=== PATIENT | male | born 1960 | race Caucasian/White ===

== ENCOUNTER 2018-11-26 18:33 | Emergency (ER) | payer MEDICARE, SELFPAY ==
[2018-11-26 18:34] VITALS: BP 168/95; PULSE 71; RESP 22; TEMP 36.3; O2SAT 94; BMI 60.2
--- NOTE | 2018-11-26 18:36 | RAD_ITS ---
STUDY: X-RAY - LEFT KNEE REASON FOR EXAM: Male, 58 years old. Pain status post fall TECHNIQUE: 4 view(s) of the knee. COMPARISON: None. FINDINGS: Normal visualized distal femur. Normal visualized proximal tibia and fibula. Normal proximal tibiofibular articulation. There is no demonstrated fracture. Left knee replacement . The alignment is near-anatomic. The distal aspect of the tibial component is not seen. The soft tissue structures are unremarkable. RAD/Knee 4 or More Views IMPRESSION: Left knee replacement. No fracture seen. Electronically Signed: Adiel Chambers MD at 19:59 EST , Service support ,
[2018-11-26] MEDS: Ondansetron 4 MG/2 ML Vial IM (21:10)
[2018-11-26] MEDS: morphine 8 MG/ML Syringe IM (21:10)
--- NOTE | 2018-11-26 21:13 | ED.VISSUMM ---
- ER Visit Summary Date of Service: 11/26/18 Chief Complaint: Left knee pain History of Present Illness: The patient is a 58 M presenting with left knee pain. Patient states that he slipped and fell landing directly on his left knee. This occurred a few hours prior to arrival. He complains of persistent pain in the left knee. Denies other injuries. He did not hit his head or lose consciousness. Denies other complaints. Physical Examination: Vitals are stable. Patient is afebrile. Alert no acute distress. HEENT exam is unremarkable. Neck is nontender Lungs are clear and equal bilaterally. Heart is regular rate and rhythm. Extremities anterior left knee tenderness with painful active full range of motion. Neurovascularly intact distally Skin is warm and dry. No focal neurologic deficit. Remainder of exam is unremarkable. Emergency Department Course and Treatment: Left knee x-ray shows no fracture. Patient was given morphine, Zofran IM. He states he has tramadol waiting for him at the pharmacy. He will pick this up. He is advised to follow-up with his orthopedic surgeon. He is advised to return to the ED for worsening complaints. Disposition: Discharge home Impression: Left knee contusion This note was generated with [employer] dictation software. It may contain incorrect words, spelling, and punctuation that were not noted in review of the chart prior to signing ED Disposition - Plan for ED Patient: Instructions: ED Sprain Knee
[2018-11-26 21:57] VITALS: BP 158/78; PULSE 75; RESP 16; O2SAT 98
== END 2018-11-26 21:59 | disposition home or self-care (01) ==
LOC: ED 21:27
PROVIDERS: Emergency Provider Emergency Medicine
DX: S80.02XA Contusion of left knee, initial encounter (principal); W01.10XA Fall on same level from slipping, tripping and stumbling with subsequent striking against unspecified object, initial encounter; Y93.9 Activity, unspecified; Y92.9 Unspecified place or not applicable; Y99.9 Unspecified external cause status; I25.10 Atherosclerotic heart disease of native coronary artery without angina pectoris; E11.9 Type 2 diabetes mellitus without complications; I10 Essential (primary) hypertension; Z72.0 Tobacco use; Z79.82 Long term (current) use of aspirin; Z79.4 Long term (current) use of insulin; Z79.899 Other long term (current) drug therapy
CPT/HCPCS: 73564; 96372; 99282; J2405

== ENCOUNTER 2018-12-03 16:04 | Emergency (ER) | payer MEDICARE, SELFPAY ==
[2018-12-03 16:05] VITALS: BP 180/117; PULSE 96; RESP 20; TEMP 36.3; O2SAT 93; BMI 61.7
--- NOTE | 2018-12-03 18:10 | ED.VISSUMM ---
- ER Visit Summary Date of Service: 12/03/18 Chief Complaint: [] Left knee injury chronic pain History of Present Illness: The patient is a 58 M [] he of chronic left knee pain related to prior knee replacement surgery he is scheduled to see orthopedic surgeons at [facility] to have his knee replaced, had a jolting type injury where he twisted his knee and has pain presents for evaluation his was here with similar related issues he indicates that basically when his pain gets this bad he receives a shot of morphine or Dilaudid he has no pain meds to use at home he had no direct trauma does not wish to have an x-ray has no other complaints Physical Examination: [] Vital signs are within normal range see those reports General, no distress resting comfortably but this is a very large gentleman bMI 63 HEENT is generally unremarkable The neck is supple no adenopathy Cardiovascular, regular rate and rhythm Lungs, clear bilateral Abdomen, soft nontender Extremities, full range of motion of the left knee to flexion extension he has a vague diffuse discomfort tib-fib and ankle and foot are unremarkable indicates his pain is chronic but exacerbated from the above mechanism Neurologic, awake alert answering questions appropriately moving all 4 extremities Test Results: [] Emergency Department Course and Treatment: [] I had a long conversation with him and explained to him the emergency department could not assume his pain management indicates he is basically stuck as he has no pain meds to use at home, at this time is treated with 8 mg morphine IM and he will follow-up with his outpatient providers he will receive no further pain management from the emergency department and again he does not wish to have any other studies done or imaging Treatment Plan: [] Disposition: [] Stable home Impression: [] Acute recurrent left knee pain This note was generated with [employer] dictation software. It may contain incorrect words, spelling, and punctuation that were not noted in review of the chart prior to signing ED Disposition - Plan for ED Patient: Referrals: [facility] Doctor,Out of [Primary Care Provider] -
--- NOTE | 2018-12-03 18:12 | ED.DEP ---
ED Disposition - Plan for ED Patient: Instructions: ED Mechanical Fall Referrals: [facility],Out of [Primary Care Provider] -
[2018-12-03] MEDS: morphine 8 MG/ML Syringe SC (18:48)
[2018-12-03] MEDS: Ondansetron ODT 4 MG Tablet PO (18:48)
[2018-12-03 19:42] VITALS: BP 175/106; PULSE 100; RESP 20; O2SAT 91
== END 2018-12-03 19:43 | disposition home or self-care (01) ==
LOC: ED 18:15
PROVIDERS: Emergency Provider Emergency Medicine
DX: M25.562 Pain in left knee (principal); G89.29 Other chronic pain; Z96.652 Presence of left artificial knee joint
CPT/HCPCS: 96372; 99282

== ENCOUNTER 2018-12-19 16:47 | Emergency (ER) | payer MEDICARE, SELFPAY ==
[2018-12-19 16:47] VITALS: BP 213/103; PULSE 101; RESP 22; TEMP 36.4; O2SAT 94; BMI 61.7
--- NOTE | 2018-12-19 16:59 | ED.DCSUM_ITS ---
- ER Visit Summary Date of Service: 12/19/18 Chief Complaint: Left knee pain History of Present Illness: The patient is a 58 M presenting with left knee pain states he fell directly onto his knees. He did not hit his head or lose consciousness. States occasionally his knees give out and cause him to fall. He has history of knee replacement. He did not take medication prior to arrival. Denies other injuries. Physical Examination: Vitals are stable. Patient is afebrile. Alert no acute distress. HEENT exam is unremarkable. Lungs are clear and equal bilaterally. Heart is regular rate and rhythm. Extremities anterior left knee tenderness with active full range of motion. No erythema or warmth. Skin is warm and dry. No focal neurologic deficit. Remainder of exam is unremarkable. Emergency Department Course and Treatment: Patient was given morphine, Zofran IM. Left knee x-ray was obtained and shows stable exam. No fracture or malalignment. He is advised to follow-up with his primary care physician. Advised return to ED if worsening complaints. Disposition: Discharge home Impression: Status post fall, left knee contusion This note was generated with [employer] dictation software. It may contain incorrect words, spelling, and punctuation that were not noted in review of the chart prior to signing ED Disposition - Plan for ED Patient: Referrals: Daryl Musa,Out of [Primary Care Provider] -
--- NOTE | 2018-12-19 17:08 | RAD_ITS ---
STUDY: X-RAY - LEFT KNEE REASON FOR EXAM: Male, 58 years old. Left knee pain for one year, fall today TECHNIQUE: 4 view(s) of the knee. COMPARISON: None. FINDINGS: Normal visualized distal femur. Normal visualized proximal tibia and fibula. Normal proximal tibiofibular articulation. Knee replacement is in stable, radiographic alignment. The soft tissue structures are unremarkable. RAD/Knee 4 or More Views IMPRESSION: 1. Stable exam. No fracture or malalignment. Electronically Signed: Antolin Cruz MD at 17:27 EST , Service support ,
[2018-12-19] MEDS: Ondansetron 4 MG/2 ML Vial IM (17:17)
[2018-12-19] MEDS: morphine 10 MG/ML Syringe IM (17:17)
--- NOTE | 2018-12-19 17:43 | ED.DEP ---
ED Disposition - Plan for ED Patient: Instructions: ED Contusion Lower Ext Referrals: [facility],Out of [Primary Care Provider] -
--- NOTE | 2018-12-20 15:44 | CM.ED ---
SOCIAL WORK NOTE RECEIVED ORDER FOR HOME HEALTH FOR PT. CALL TO PT TO FOLLOW UP FROM ED VISIT ON 12/19/18. NO ANSWER, LEFT MESSAGE WITH THIS WORKER'S CALL BACK INFORMATION. MEGHAN RUIZ, [employer]ODUCTION SUPERVISOR, MEAT SUPERVISOR.
== END 2018-12-19 18:06 | disposition home or self-care (01) ==
LOC: ED 17:16
PROVIDERS: Emergency Provider Emergency Medicine
DX: S80.02XA Contusion of left knee, initial encounter (principal); W18.30XA Fall on same level, unspecified, initial encounter; Y93.9 Activity, unspecified; Y92.9 Unspecified place or not applicable; Y99.9 Unspecified external cause status; Z79.82 Long term (current) use of aspirin; Z79.4 Long term (current) use of insulin; Z79.899 Other long term (current) drug therapy; Z96.653 Presence of artificial knee joint, bilateral
CPT/HCPCS: 73564; 96372; 99282; J2405

== ENCOUNTER 2018-12-23 17:20 | Emergency (ER) | payer MEDICARE, SELFPAY ==
[2018-12-23 17:21] VITALS: BP 164/84; PULSE 88; RESP 18; TEMP 36.6; O2SAT 99; BMI 60.2
--- NOTE | 2018-12-23 17:31 | ED.RN ---
pt refuses xrays. irate in triage for not being seen before other pts. explained triage process. pt still upset.
--- NOTE | 2018-12-23 17:50 | RAD_ITS ---
STUDY: X-RAY CHEST REASON FOR EXAM: Male, 58 years old. Cough TECHNIQUE: Frontal and lateral views COMPARISON: None. FINDINGS: The lungs are clear and expanded. There is no demonstrated pleural abnormality. Normal size heart. Normal mediastinum and jabier. Normal visualized pulmonary arteries. Normal visualized aortic arch and descending thoracic aorta. Normal visualized thoracic spine. Normal visualized ribs, clavicles, and shoulders. Right shoulder prosthesis. There is no demonstrated abnormality of the visualized soft tissue structures of the upper abdomen. RAD/Chest PA and Lateral IMPRESSION: Normal x-ray examination of the chest. Electronically Signed: Red Lan DO at 18:09 EST Tel [phone], Service support ,
--- NOTE | 2018-12-23 17:59 | ED.RN ---
after speaking with pt, he agreed to xrays for expedition of treatment. upon arriving to xray, pt refused knee xrays without strong pain meds. was rude and yelling at xray staff.
[2018-12-23 21:52] VITALS: PULSE 96; RESP 22; O2SAT 90
--- NOTE | 2018-12-23 21:52 | EKG12_ITS ---
Test Reason : CHEST PAIN Blood Pressure : / mmHG Vent. Rate : 096 BPM Atrial Rate : 096 BPM P-R Int : 152 ms QRS Dur : 090 ms QT Int : 356 ms P-R-T Axes : 057 034 062 degrees QTc Int : 449 ms Normal sinus rhythm Normal ECG Confirmed by CARMEN MONCADA, GENEVIEVE ([id number]), communications editor BRIGHT ALATORRE ([id number]) on 12/29/2018 9:13:30 AM Referred By: DEWAYNE Confirmed By:GENEVIEVE MORALES MD
--- NOTE | 2018-12-23 22:15 | ED.DEP ---
ED Disposition - Plan for ED Patient: Instructions: ED Sprain Knee Referrals: [facility],Out of [Primary Care Provider] -
--- NOTE | 2018-12-23 22:15 | ED.VISSUMM ---
- ER Visit Summary Date of Service: 12/23/18 Chief Complaint: Left knee pain History of Present Illness: The patient is a 58 M who presents with left knee pain. Patient says he has ongoing left knee pain for years. Sometimes his knee gives out. He said he fell today and injured his knee. He said he twisted it when he fell. He denies any other injuries or complaints. He said he is waiting for an operative repair of his left knee, but he needs to lose weight before he can go to surgery. He took some ibuprofen earlier today, prior to the fall. Physical Examination: Afebrile and vital signs unremarkable. Alert and oriented. No acute distress. Left knee shows normal inspection. Good range of motion. Skin appears normal. Test Results: Chest x-ray was ordered by nursing and it was normal. Nursing also ordered an EKG which showed sinus rhythm at a rate of 96 with no abnormal findings. Emergency Department Course and Treatment: Patient presents with left knee pain. He declined an x-ray of his knee in triage. He told the triage nurse that he was having chest pain and a cough, and so an x-ray and EKG were ordered. These tests were negative. According to the senior laboratory technician, the patient told him that he thought that reporting some chest pain would get him evaluated quicker. I saw the patient and he continued to refuse x-rays of his knee. I was concerned that if he fell and injured his knee, we should check for fractures. He said that he is already had so many x-rays, and that he would just like something for pain. I advised him that we could treat him with nonnarcotic medications as well as ice packs and check an x-ray. He told me that I could check an x-ray if I want but that he just wants something for pain. He said this pain has been going on for years. Patient had multiple concerning red flags. This was his fourth visit in about 1 month for left leg pain. I explained that this is a chronic issue and he really needs to follow-up with a primary care doctor or a pain management doctor. The patient said he did not have a doctor. I explained that I could refer him to a primary care doctor or a pain management doctor. He then said he did have a doctor and his doctor told him to come to the ER for pain meds. Patient showed me some kind of cards with his name on the that were in relation to working with addiction medicine. The patient was seen on a previous visit, and his encouraged him to ask for tramadol. His was also here asking for tramadol in the past. I explained to the patient that the patient's pain is a chronic issue, and that he should follow-up with primary care doctor or pain management doctor, and that we will not be prescribing opioids for chronic pain. I advised him that we do not want to cause any harm to him or create any kind of dependency. I explained that these medications are very dangerous. I advised the patient that we could give him any nonnarcotic medications and try other methods such as ice packs, etc. When he asked me what kind of medication, I suggested Tylenol, Motrin, naproxen. He said what kind of fucking doctor are you? He was mad that I would suggest he takes Tylenol, and says he is allergic to that. He continued to swear at me and threaten me, and I at that point said he was discharged. I asked security to escort him out. Treatment Plan: As above Disposition: Discharge Impression: 1. Left knee pain This note was generated with [employer], dictation software. It may contain incorrect words, spelling, and punctuation that were not noted in review of the chart prior to signing ED Disposition - Plan for ED Patient: Disposition: Home or Assisted Living Instructions: ED Sprain Knee Referrals: [facility] Doctor,Out of [Primary Care Provider] -
--- NOTE | 2018-12-23 22:21 | ED.RN ---
DR ESPARZA IN TO SEE PATIENT. PATIENT STARTED YELLING PROFANITY'S AT DR. ESPARZA WHEN HE TOLD PATIENT TREATMENT PLAN.
[2018-12-23 22:23] VITALS: PULSE 92; RESP 20; O2SAT 91
== END 2018-12-23 22:24 | disposition home or self-care (01) ==
PROVIDERS: Emergency Provider Emergency Medicine
DX: M25.562 Pain in left knee (principal); E11.9 Type 2 diabetes mellitus without complications; I50.9 Heart failure, unspecified; R07.9 Chest pain, unspecified; R05 Cough; Z79.82 Long term (current) use of aspirin; Z79.4 Long term (current) use of insulin; Z79.899 Other long term (current) drug therapy
CPT/HCPCS: 71046; 93005; 99282

== ENCOUNTER 2019-01-15 16:41 | Emergency (ER) | payer MEDICARE, SELFPAY ==
[2019-01-15 16:42] VITALS: BP 141/89; PULSE 97; RESP 17; TEMP 36.9; O2SAT 93; BMI 60.2
--- NOTE | 2019-01-15 17:29 | ED.DCSUM_ITS ---
- ER Visit Summary Date of Service: 01/15/19 Chief Complaint: Fall complaint right knee pain History of Present Illness: The patient is a 58 M history of insulin-dependent diabetes, CAD, RI, hypertension. Patient had a left knee replacement. He says from time to time he has weakness in his left leg gives out any falls. That happened today he fell hitting his right anterior knee on a tile floor and since that time is been complaining of pain. This happened 1-2 hours ago. He denies any other injuries. He is not on any blood thinners other than aspirin. He did not hit his head. He denies other complaints. Physical Examination: Vital signs are stable and afebrile. No acute distress. Sitting in the hallway chair. HEENT exam unremarkable atraumatic. Lungs clear to auscultation bilaterally. Heart regular rhythm no murmur. Abdomen is morbidly obese but soft. Nontender normal bowel sounds no peritoneal signs. Extremities moving all 4. Neurovascular intact. His right anterior knee has mild tenderness to palpation. No gross bony deformity. He is able to flex and extend the right knee. Ligaments appear to be intact. No effusion. Distally his right ankle and foot are nontender. With normal dorsi and plantar flexion. Neurologically is awake and alert with no focal motor deficits. Test Results: Right knee x-ray shows 3 views shows no acute fracture. Chronic degenerative arthritic changes. I will go over the films with the patient. Emergency Department Course and Treatment: [address] x1 for pain. Patient throughout the [address] because he was concerned that he may have a reaction to it due to a possible Tylenol allergy. And Requesting multiple times narcotic pain medications. I do have concerns the number times the patient is asking eluded to pain meds and do not feel that this injury warrants narcotic pain medication. Patient was upset he was not getting any narcotic pain medication. I offered him anti-inflammatories and explained to him it would be appropriate to give narcotics for this type of injury. He wanted to file a complaint. Of note his is also here with a similar complaint and is also asking for pain medications. Treatment Plan: Ice and elevate right knee. Disposition: Discharge Impression: Fall Right knee contusion History of insulin-dependent diabetes Narcotic seeking behavior This note was generated with [facility] dictation software. It may contain incorrect words, spelling, and punctuation that were not noted in review of the chart prior to signing ED Disposition - Plan for ED Patient: Disposition: Home or Assisted Living Instructions: ED Contusion Lower Ext Referrals: [facility],Out of [Primary Care Provider] - 1 Week if not improving Additional Instructions: Ice to your knee. Motrin for pain. Follow-up with your doctor if not improving. Your x-rays show arthritis but no broken or dislocated bones.
[2019-01-15] MEDS: HYDROcodone Bitartrate/Apap 5/325 Tablet PO (17:35)
--- NOTE | 2019-01-15 17:41 | RAD_ITS ---
STUDY: X-RAY - RIGHT KNEE REASON FOR EXAM: Male, 58 years old. Fall. Pain. TECHNIQUE: view(s) of the knee. COMPARISON: None. FINDINGS: Normal visualized distal femur. Normal visualized proximal tibia and fibula. Normal proximal tibiofibular articulation. There is no demonstrated fracture. There is mild degenerative arthrosis of the medial femorotibial compartment. Normal lateral femorotibial compartment. There is moderate degenerative arthrosis of the patellofemoral articulation. There is no demonstrated joint effusion. The soft tissue structures are unremarkable. RAD/Knee 4 or More Views IMPRESSION: No acute fracture or dislocation. [id number] changes. Electronically Signed: Elder Voss MD at 17:57 EDT , Service support ,
--- NOTE | 2019-01-15 18:04 | ED.RN ---
PT YELLING LOUDLY, DEMANDS PAIN MEDS HARRIET PRIOR TO BEING SEEN BY MD. EXPLAINED MEDS NEEDED ORDERED BY MD, OFFERED SUPPORTIVE CARE. WHEN THIS RN ARRIVED WITH PAIN MEDS, PT ASKED WHAT HE WAS RECEIVING. RN INFORMED PT OF DRUG BY GENERIC AND TRADE NAME, PT ASKED IS IT A 5 OR A 10, FURTHER STATES I NEED MORE THAN MOST PEOPLE. AFTER PAIN MED GIVEN, PT STATES I CAN'T HAVE THAT, I'M ALLERGIC TO TYLENOL. MD INFORMED OF PT'S STATEMENT. NO NEW ORDERS. PT TAKEN TO XRAY, AFTER HE RETURNS HE STATES I THREW UP THAT PILL. WHEN ASKED WHEN AND WHERE HE VOMITED, PT STATED WHEN I WENT TO THE BATHROOM. PT HAD GONE TO BATHROOM PRIOR TO RECEIVING MED. AWARE OF ALL OF ABOVE.
--- NOTE | 2019-01-15 18:30 | ED.DEP ---
ED Disposition - Plan for ED Patient: Disposition: Home or Assisted Living Instructions: ED Contusion Lower Ext Referrals: [facility],Out of [Primary Care Provider] - 1 Week if not improving Additional Instructions: Ice to your knee. Motrin for pain. Follow-up with your doctor if not improving. Your x-rays show arthritis but no broken or dislocated bones.
== END 2019-01-15 18:50 | disposition home or self-care (01) ==
PROVIDERS: Emergency Provider Emergency Medicine
DX: S80.01XA Contusion of right knee, initial encounter (principal); W18.30XA Fall on same level, unspecified, initial encounter; Y93.9 Activity, unspecified; Y92.9 Unspecified place or not applicable; Y99.9 Unspecified external cause status; E11.9 Type 2 diabetes mellitus without complications; Z76.5 Malingerer [conscious simulation]; I25.10 Atherosclerotic heart disease of native coronary artery without angina pectoris; I10 Essential (primary) hypertension; F17.210 Nicotine dependence, cigarettes, uncomplicated; I25.2 Old myocardial infarction; Z79.82 Long term (current) use of aspirin; Z79.4 Long term (current) use of insulin; Z79.899 Other long term (current) drug therapy; Z95.5 Presence of coronary angioplasty implant and graft
CPT/HCPCS: 73564; 99283

== ENCOUNTER 2019-10-27 20:32 | Emergency (ER) | payer MEDICARE, SELFPAY ==
[2019-10-27 20:33] VITALS: BP 106/47; PULSE 69; RESP 20; TEMP 37.4; O2SAT 93; BMI 57.4
--- NOTE | 2019-10-27 21:20 | ED.DCSUM_ITS ---
History of Present Illness Chief Complaint: Cellulitis Detail of Chief Complaint: Left lower extremity cellulitis Informant: Patient Onset: Days Narrative: Patient reports going to [facility] in [place] on the fifth for cellulitis to his left lower extremity. He was placed on clindamycin and doxycycline. Patient states the redness is improving. He presented to the local area to visit family today and reports a fall with increased pain. Patient then tells me that he did go back to [place] yesterday and had an ultrasound of his leg that revealed no evidence of blood clots. He is requesting a dose of IV antibiotic to knock out the infection and something for pain. - Past Medical History (1) Diabetes Status: Chronic (2) Hypertension Status: Chronic (3) High cholesterol Status: Chronic (4) History of left knee replacement Status: Chronic Past Medical History - Allergies and Home Meds Allergies/Adverse Reactions: Allergies acetaminophen Adverse Reaction (Verified 01/15/19 16:42) Swelling ketorolac [From Toradol] Adverse Reaction (Verified 10/27/19 20:32) Swelling Primary Care Physician: [facility] Doctor,Out of [NON-STAFF] - Smoking Status: Unknown if ever smoked Review of Systems General: Denies: Chills, Fever Eyes: Denies: Visual changes - bilaterally ENT: Denies: Bilateral ear pain Cardiovascular: Denies: Chest pain Respiratory: Denies: Dyspnea Gastrointestinal: Denies: Abdominal pain, Nausea, Vomiting, Diarrhea Musculoskeletal: Reports: Extremity Pain Skin: Reports: - - Left lower extremity erythema Neurological: Denies: Headache Allergy: Denies: Uticaria Physical Exam Vital Signs/Narrative: Vital Signs Temp Pulse Resp BP Pulse Ox 10/27/19 20:33 99.3 F H 69 20 H 106/47 L 93 Inital Vital Signs reviewed: Yes General: Well nourished, Well developed Head: Normocephalic ENT: Moist mucous membranes Neck: Supple Cardiovascular: Regular rate, Regular rhythm Respiratory: No distress, CTA bilaterally Abdomen: Soft, Nontender Skin: - - Erythema to the distal aspect of the left lower leg. There is an area of outline where the cellulitis had been spread and erythema is significantly smaller. Strong distal pulses are noted. No tenderness around the left ankle with 2+ edema. Neurological: Alert, Oriented x3 Psychological: Normal affect Diagnostic/Tx/Re-eval Impressions Ankle X-Ray 10/27/19 21:30 IMPRESSION: Diffuse nonspecific soft tissue swelling with no underlying acute bone or joint findings. Electronically Signed: Tabitha Dela Cruz MD at 21:48 EST , Service support , 10/27/19 21:30 Ankle min 3 Views [RAD] Stat Laboratory Results 10/27/19 10/27/19 21:50 21:50 WBC 6.5 RBC 4.39 L Hgb 11.3 L Hct 36.1 L MCV 82.2 MCH 25.7 L MCHC 31.3 L RDW Std Deviation 41.5 RDW Coeff of Tom 14.0 Plt Count 249 MPV 10.2 Immature Gran % (Auto) 0.900 Neut % (Auto) 50.3 Lymph % (Auto) 31.9 [place] % (Auto) 10.0 Eos % (Auto) 6.6 H Baso % (Auto) 0.3 Absolute Neuts (auto) 3.3 Absolute Lymphs (auto) 2.07 Nucleated RBC % 0 Sodium 137 Potassium 4.7 Chloride 102 Carbon Dioxide 28.0 Anion Gap 7 BUN 41 H Creatinine 1.88 H Estim Creat Clear Calc 44.22 Est GFR (MDRD) Af Amer 48 L Est GFR (MDRD) Non-Af 39 L BUN/Creatinine Ratio 21.8 H Glucose 327 H Calcium 9.4 - Medical Decision Making Patient was given 1 tab of oxycodone here. I was unable to find his records in [facility] but did request records from [facility]. Patient has had 4 visits to the emergency room there since the third. Patient was at [facility] and signed in at 7:07 PM. He was discharged at 7:46 PM. He signed in here at approximately 825. He had initially told me that he was in town visiting family today when he fell. Patient per the notes from [facility] has been asking for multiple doses of oxycodone or morphine. Patient has active prescription for tramadol would not be given any further prescriptions here. ED Disposition - Plan for ED Patient: Disposition: Home or Assisted Living Diagnosis: Cellulitis Instructions: Cellulitis Referrals: [facility] Doctor,Out of [NON-STAFF] -
--- NOTE | 2019-10-27 21:30 | RAD_ITS ---
STUDY: X-RAY - LEFT ANKLE REASON FOR EXAM: Male, 59 years old. CELLULITIS, PAIN TECHNIQUE: 3 view(s) of the ankle. COMPARISON: None. FINDINGS: Normal visualized distal tibia and fibula. Hypertrophic degenerative changes of the medial malleolus. Normal lateral malleolus. Normal tibiotalar articulation and ankle mortise. Normal visualized talus and calcaneus. The visualized subtalar, talonavicular, calcaneocuboid and tarsal articulations are normal. Diffuse soft tissue swelling. RAD/Ankle min 3 Views IMPRESSION: Diffuse nonspecific soft tissue swelling with no underlying acute bone or joint findings. Electronically Signed: Tabitha Dela Cruz MD at 21:48 EST , Service support ,
[2019-10-27] MEDS: oxyCODONE 5 MG Tablet PO (21:44)
--- NOTE | 2019-10-27 21:52 | ED.RN ---
WHILE THIS RN WAS PLACING IV AND DRAWING BLOOD, PT ASKED FOR PAIN MEDICATION. MEDICATION WAS GIVEN 5 MIN PRIOR BY OTHER RN. PT EDUCATED ON HOW LONG IT TAKES ORAL MEDS TO GET INTO BODY.
[2019-10-27 21:57] LABS: Absolute Lymphocyte Count 2.07 X10^3/uL (0.83-4.51); Absolute Neutrophil Count 3.3 X10^3/uL (2.0-7.7); Basophil# 0.02 X10^3/uL; Basophil% 0.3 % (0-1); Eosinophil# 0.43 X10^3/uL; Eosinophils% 6.6 % (0-5); Hematocrit 36.1 % (40-54); Hemoglobin 11.3 g/dL (13.0-16.5); Lymphocyte # 2.07 X10^3/ul (4.0); Lymphocyte % 31.9 % (19-41); Mean Corp Hgb Conc 31.3 g/dL (32-36); Mean Corpuscular Hgb 25.7 pg (27.0-32.0); Mean Corpuscular Volume 82.2 fL (80-94); Mean Platelet Vol. 10.2 fl (6.2-12.0); Monocyte# 0.65 X10^3/uL; NRBC Flagged by Analyzer 0 % (0-5); Neutrophil # 3.25 X10^3/uL (2.7-7.7); Neutrophil % 50.3 % (47-70); Platelet Count 249 K/mm3 (150-450); RBC Distribution Width SD 41.5 fl (35.1-43.9); Red Blood Count 4.39 M/mm3 (4.6-6.2); White Blood Count 6.5 K/mm3 (4.4-11.0)
[2019-10-27 22:10] LABS: Anion Gap 7 (5-15); BUN 41 mg/dL (7-18); BUN/Creat Ratio 21.8 RATIO (10-20); Calcium,Total 9.4 mg/dL (8.5-10.1); Chloride 102 mmol/L (98-107); Creatinine, Serum 1.88 mg/dL (0.70-1.30); EST Glomerular Filtration Rate 39 mL/min (>60); Est Glom Filt Rate - Afr Amer 48 mL/min (>60); Estimated Creatinine Clearance 44.22 ml/min; Glucose 327 mg/dL (74-106); Potassium 4.7 mmol/L (3.5-5.1); Sodium Level 137 mmol/L (136-145)
--- NOTE | 2019-10-27 22:39 | ED.RN ---
PT DID NOT WANT TO STAY FOR VITAL SIGNS FOR DISCHARGE. FAMILY AT BEDSIDE.
== END 2019-10-27 22:40 | disposition home or self-care (01) ==
PROVIDERS: Emergency Provider Emergency Medicine
DX: L03.116 Cellulitis of left lower limb (principal); E11.9 Type 2 diabetes mellitus without complications; I10 Essential (primary) hypertension; E78.00 Pure hypercholesterolemia, unspecified; Z79.82 Long term (current) use of aspirin; Z79.4 Long term (current) use of insulin; Z79.899 Other long term (current) drug therapy; Z96.652 Presence of left artificial knee joint
CPT/HCPCS: 73610; 80048; 85025; 99284; A4216

== ENCOUNTER 2019-11-02 18:42 | Emergency (ER) | payer MEDICARE, SELFPAY ==
[2019-11-02 18:43] VITALS: BP 162/84; PULSE 88; RESP 16; TEMP 36.1; O2SAT 97; BMI 56.9
[2019-11-02] MEDS: Naproxen 500 MG Tablet PO (19:30)
--- NOTE | 2019-11-02 19:43 | ED.RN ---
PT BECAME ANGRY WHEN THIS RN ATTEMPTED TO MEDICATE WITH NAPROSYN. PT STATES I NEED SOMETHING A LOT STRONGER, SOMETHING NARCOTIC. THIS RN EXPLAINED PAIN WOULD BE RE EVALUATED AFTER ATTEMPTING NSAID TX AND ALSO AFTER IMAGING RESULTS. PT STATED I DON'T NEED ANY X-RAYS, ADAMANTLY REFUSED IMAGING DESPITE INSISTING PAIN WAS EXTREME. STATES I KNOW NOTHING IS BROKE. AT BEDSIDE, STATES WHY WON'T YOU JUST GIVE HIM SOME NARCOTICS, THAT'S WHAT WE USUALLY GET. AGAIN ATTEMPTED TO EDUCATE ON NEED FOR IMAGING, PT REFUSES, STATES I JUST CAME HERE SO YOU COULD GIVE ME SOMETHING FOR THE PAIN. NOTIFIED OF ABOVE, NO FURTHER ORDERS. THIS RN RETURNED TO ROOM AND AGAIN ENCOURAGED IMAGING, PT HAD GOTTEN DRESSED, STATES HE IS LEAVING, WILL NOT SIGN ANY AMA PAPERS. PT AND LEFT DEPT.
--- NOTE | 2019-11-02 23:57 | ED.DCSUM_ITS ---
- ER Visit Summary Date of Service: 11/02/19 Chief Complaint: Back and knee pain History of Present Illness: The patient is a 59 M who presents with back and knee pain that began after a fall today. Patient states he missed seat and fell onto the floor. Patient complains of pain in his low back and both knees but worse on the left. Patient describes the pain is sharp and throbbing. Patient states pain is worse with movement. Patient denies any paresthesias or weakness. Patient denies any head injury or loss of consciousness. Patient denies any other injuries. Physical Examination: Vital signs are stable. Patient is afebrile. Patient is in no acute distress. Oral mucosa is pink and moist. Neck is supple. Trachea is midline. There is no JVD. Heart was regular rate and rhythm. Lungs are clear and equal bilateral. Abdomen is soft and nontender. Musculoskeletal exam reveals tenderness over the lumbar spine and paraspinal muscles. There is no bony crepitance or step-off. There is no edema or ecchymosis. Straight leg raises were negative bilaterally. There is tenderness to palpation over the knees bilaterally but worse on the left. There is no ecchymosis. Range of motion was limited in all motion of the knees secondary to pain. There is no effusion. Sensation was intact to light touch bilateral lower extremities. Strength is 5/5 bilaterally in lower extremities. Pedal pulses are equal bilaterally. Test Results: X-rays of the knees and lumbar spine were ordered. Patient refused to have these done. Emergency Department Course and Treatment: Patient was given a dose of Naprosyn here. Patient refused to have his x-rays performed. Patient was requesting narcotic pain medication. Patient was instructed that x-rays would need to be done to determine if there is a fracture which is an indication for narcotic pain medication. At this time patient appears to only have contusions which do not indicate a need for narcotic pain medication. Patient left prior to completing treatment. Disposition: Elopement Impression: 1. Fall 2. Bilateral knee contusions 3. Lumbar strain This note was generated with [employer] software. It may contain incorrect words, spelling, and punctuation that were not noted in review of the chart prior to signing ED Disposition - Plan for ED Patient: Disposition: Against Medical Advice Diagnosis: Fall, Contusion of knee, Lumbar strain Referrals: [facility] [Other]
== END 2019-11-02 19:52 | disposition left against medical advice (07) ==
LOC: ED 19:20
PROVIDERS: Emergency Provider Emergency Medicine
DX: S39.012A Strain of muscle, fascia and tendon of lower back, initial encounter (principal); S80.02XA Contusion of left knee, initial encounter; S80.01XA Contusion of right knee, initial encounter; W19.XXXA Unspecified fall, initial encounter; Y93.9 Activity, unspecified; Y92.9 Unspecified place or not applicable; Y99.9 Unspecified external cause status; E11.9 Type 2 diabetes mellitus without complications; I10 Essential (primary) hypertension; E66.9 Obesity, unspecified; Z79.82 Long term (current) use of aspirin; Z79.4 Long term (current) use of insulin; Z79.899 Other long term (current) drug therapy; Z95.5 Presence of coronary angioplasty implant and graft
CPT/HCPCS: 99283

== ENCOUNTER 2020-02-23 17:54 | Emergency (ER) | payer MEDICARE, MEDICAID, SELFPAY ==
[2020-02-23 17:55] VITALS: BP 156/117; PULSE 93; RESP 16; TEMP 36.3; O2SAT 95; BMI 57.4
--- NOTE | 2020-02-23 18:28 | ED.VISSUMM ---
- ER Visit Summary Date of Service: 02/23/20 Chief Complaint: Fall with left knee and low back pain. History of Present Illness: The patient is a 59 M has a complex past medical history of insulin-dependent diabetes, hypertension, high cholesterol, obesity, CAD with a cardiac stent on Plavix. Patient states that he had a left knee replacement. From time to time his knee gives out. He was walking at home today. Knee gave out he fell landing on both knees primarily complaining of pain on the left and his low back. Did not hit his head. No LOC. No pre-fall symptoms. He denies being ill recently. He had a similar episode a year ago. Physical Examination: Middle-aged male no acute distress vital signs stable afebrile. H EENT exam dry reactive light. No signs of trauma to his face or scalp. Nontender no hematomas. C-spine nontender. Lungs with auscultation bilaterally. Heart regular rhythm rate about 90 no murmur. Chest were nontender. Ribs nontender. Abdomen soft. Nontender. Normal bowel sounds no peritoneal signs. No bruising. Morbidly obese. Pelvic girdle intact. Patient is moving all 4 extremities both upper and lower extremities. No deformity. He has mild pain on palpation to his left knee. No swelling. No bony deformity. Normal flexion-extension of both hips, both knees and ankles and feet. Upper extremities are nontender with normal range of motion. Back he has diffuse lumbar spine tenderness. There is no ecchymosis or bruising. No deformity. Neurologically is awake alert with no focal motor deficits. Test Results: Left knee x-ray shows a prior total knee replacement but no acute injury. Hardware intact. 4 views. Read by myself. Lumbar spine x-rays 2 views read by myself shows no acute abnormality. I did go over the x-ray results with the patient. Emergency Department Course and Treatment: Patient treated with Tylenol for pain. X-rays are being obtained. He has a history of falls and requesting pain meds. With myself and the charge nurse discussed with the patient at length. He keeps requesting pain meds and is trying to bargain to get pain meds. I explained to him due to issues with prior visits and pain medications that I did not feel was appropriate to treat him with narcotic pain meds. He was offered Tylenol which she refused. He then requested Motrin. Treatment Plan: Ice to his knee and back. Tylenol for pain. Disposition: Discharge Impression: Acute fall Left knee contusion Low back musculoskeletal pain. Narcotic seeking behavior History of diabetes, CAD with stents, hypertension This note was generated with [employer] dictation software. It may contain incorrect words, spelling, and punctuation that were not noted in review of the chart prior to signing ED Disposition - Plan for ED Patient: Referrals: NOT,DEFINED [Primary Care Provider] -
--- NOTE | 2020-02-23 18:35 | RAD_ITS ---
STUDY: X-RAY - LUMBAR SPINE REASON FOR EXAM: Male, 59 years old. FALL AND BACK PAIN TECHNIQUE: 3 view(s) of the lumbar spine were obtained. COMPARISON: None FINDINGS: Normal lumbar lordosis. There is mild dextroscoliosis or splinting secondary to muscle spasm. Grade 1 retrolisthesis at L5-S1 where there appears to be spinal stenosis exaggerated by facet arthropathy and foreshortened pedicles. This may be better assessed with CT or MRI if indicated No evidence for acute fracture or subluxation. Disc space heights are well-maintained although there is multilevel endplate spurring. The soft tissue structures are unremarkable. RAD/Lumbar Spine 2 or 3 Views IMPRESSION: Mild scoliosis and degenerative changes most severe at L5-S1. No evidence for acute fracture or subluxation Electronically Signed: Jose Luis Delgado MD at 19:21 EDT , Service support ,
--- NOTE | 2020-02-23 18:35 | RAD_ITS ---
STUDY: X-RAY - LEFT KNEE REASON FOR EXAM: Male, 59 years old. FALL AND PAIN TECHNIQUE: 4 view(s) of the knee. COMPARISON: None. FINDINGS: Prosthesis is noted in anatomic alignment and position. No evidence for acute fracture or dislocation.. No definitive evidence for loosening of the prosthesis. RAD/Knee 4 or More Views IMPRESSION: Stable appearance to knee prosthesis without evidence for acute fracture or dislocation. Electronically Signed: Jose Luis Delgado MD at 19:23 EDT , Service support ,
--- NOTE | 2020-02-23 19:17 | ED.DEP ---
ED Disposition - Plan for ED Patient: Disposition: Home or Assisted Living Instructions: ED EXTREMITY CONTUSION Lower, ED LUMBAR SPRAIN/STRAIN Referrals: NOT,DEFINED [Primary Care Provider] - 1 Week if not improving Additional Instructions: Follow Up with your doctor if not improving. Ice to all sore areas including your left knee and back.
[2020-02-23 19:25] VITALS: BP 139/84; PULSE 71; RESP 18; O2SAT 95
[2020-02-23] MEDS: Ibuprofen 200 MG Tablet 800 MG PO (19:27)
== END 2020-02-23 19:28 | disposition home or self-care (01) ==
LOC: ED 19:27
PROVIDERS: Emergency Provider Emergency Medicine
DX: S80.02XA Contusion of left knee, initial encounter (principal); M54.5 Low back pain; Z76.5 Malingerer [conscious simulation]; W19.XXXA Unspecified fall, initial encounter; Y93.01 Activity, walking, marching and hiking; Y92.009 Unspecified place in unspecified non-institutional (private) residence as the place of occurrence of the external cause; Y99.9 Unspecified external cause status; I25.10 Atherosclerotic heart disease of native coronary artery without angina pectoris; E11.9 Type 2 diabetes mellitus without complications; I10 Essential (primary) hypertension; E78.00 Pure hypercholesterolemia, unspecified; E66.01 Morbid (severe) obesity due to excess calories; Z79.4 Long term (current) use of insulin; Z79.82 Long term (current) use of aspirin; Z79.02 Long term (current) use of antithrombotics/antiplatelets; Z79.899 Other long term (current) drug therapy; Z96.652 Presence of left artificial knee joint; Z95.5 Presence of coronary angioplasty implant and graft
CPT/HCPCS: 72100; 73564; 99283

== ENCOUNTER 2020-04-26 19:12 | Emergency (ER) | payer MEDICARE, MEDICAID, SELFPAY ==
[2020-04-26 19:14] VITALS: BP 140/100; PULSE 90; RESP 18; TEMP 36.7; O2SAT 94; BMI 58.8
--- NOTE | 2020-04-26 19:33 | ED.VIS.GEN ---
History of Present Illness Chief Complaint: Lower Extremity Injury Onset: Today Narrative: 59-year-old male presents with left knee pain after falling today. States that he has frequent falls. Describes his pain in his left knee which is aching and worse with movement. States he has had these issues for many years. Is due to have surgery but has to lose 100 pounds first. Denies any numbness or tingling. Denies any loss of consciousness or head injury. Past Medical History - Allergies and Home Meds Allergies/Adverse Reactions: Allergies acetaminophen Adverse Reaction (Verified 04/26/20 19:16) Swelling ketorolac [From Toradol] Adverse Reaction (Verified 04/26/20 19:16) Swelling Primary Care Physician: Care Physician,No Primary [Primary Care Provider] - Past Medical History: - - DM, HTN Surgical History: - - left knee Smoking Status: Former smoker Review of Systems General: Denies: Chills, Fever, Sweats Eyes: Denies: Visual changes - bilaterally, Diplopia ENT: Denies: Rhinorrhea, Sore throat Cardiovascular: Denies: Chest pain, Palpitations Respiratory: Denies: Dyspnea, Cough, Dyspnea on exertion Gastrointestinal: Denies: Abdominal pain, Nausea, Vomiting, Diarrhea, Melena, Hematochezia Genitourinary: Denies: Dysuria, Hematuria, Frequency Musculoskeletal: Reports: Arthralgias. Denies: Back pain, Extremity Pain Skin: Denies: Rash, Wounds Neurological: Denies: Headache, Weakness, Numbness Physical Exam Vital Signs/Narrative: Vital Signs Temp Pulse Resp BP Pulse Ox 04/26/20 19:14 98.0 F 90 18 140/100 H 94 Inital Vital Signs reviewed: Yes General: Well nourished, Well developed, No Acute Distress Head: Normocephalic, Atraumatic Eyes: Perrl, EOMI ENT: Moist mucous membranes, No rhinorrhea Neck: Supple, Nontender Cardiovascular: Regular rate, Regular rhythm, No murmurs Respiratory: No distress, CTA bilaterally, Chest nontender Abdomen: Soft, Nontender, Nondistended, Normal bowel sounds Back: Nontender, Normal Inspection Extremities: No edema, - - TTP of the left knee. Extensor mechanism intact. No overlying skin changes. Skin: Normal color, No rash Neurological: Alert, Oriented x3, Cranial nerves II-XII grossly intact, Normal Strength, Normal Sensation Psychological: Normal affect, Normal Mood Diagnostic/Tx/Re-eval Clinical Impression(s) from Imaging Studies Knee X-Ray 04/26/20 20:08 IMPRESSION: Stable postsurgical changes from left knee arthroplasty with intact wire in satisfactory alignment. No fracture or dislocation. Electronically Signed: Carlos Loredo, at 20:31 EDT Tel , Service support , - Medical Decision Making Appears well nontoxic. Vital signs within normal limits. Patient was given Lidoderm patch for the left knee. X-ray negative. Patients OARRS is consistent with multiple prescriptions for narcotic pain medications over the past few months. I did speak to him about this and advised possible pain management. Patient will follow-up with his primary care physician and was given a prescription for Lidoderm patches. Discharged home in stable condition. ED Disposition - Plan for ED Patient: Disposition: Home or Assisted Living Diagnosis: Knee pain, chronic Referrals: Meghan Conley MD [STAFF PHYSICIAN] -
[2020-04-26] MEDS: Lidocaine 5% Patch 1 PATCH TOPICAL (20:01)
--- NOTE | 2020-04-26 20:08 | RAD_ITS ---
STUDY: X-RAY - LEFT KNEE REASON FOR EXAM: Male, 59 years old. Fall TECHNIQUE: 4 view(s) of the knee. COMPARISON: 02/23/2020 FINDINGS: There is no evidence of fracture or dislocation. There are stable postsurgical changes from left knee arthroplasty with intact hardware in satisfactory alignment. There are no radiodense foreign bodies. RAD/Knee 4 or More Views IMPRESSION: Stable postsurgical changes from left knee arthroplasty with intact wire in satisfactory alignment. No fracture or dislocation. Electronically Signed: Carlos Loredo, at 20:31 EDT Tel , Service support ,
== END 2020-04-26 21:11 | disposition home or self-care (01) ==
PROVIDERS: Emergency Provider Emergency Medicine
DX: M25.562 Pain in left knee (principal); G89.29 Other chronic pain; E11.9 Type 2 diabetes mellitus without complications; I10 Essential (primary) hypertension; Z79.84 Long term (current) use of oral hypoglycemic drugs; Z79.82 Long term (current) use of aspirin; Z79.899 Other long term (current) drug therapy; Z96.652 Presence of left artificial knee joint; Z87.891 Personal history of nicotine dependence
CPT/HCPCS: 73564; 99283

== ENCOUNTER 2020-07-04 18:07 | Emergency (ER) | payer MEDICARE, MEDICAID, SELFPAY ==
[2020-07-04 18:08] VITALS: BP 163/109; PULSE 91; RESP 20; TEMP 36.6; O2SAT 97; BMI 61.0
--- NOTE | 2020-07-04 18:22 | ED.DCSUM_ITS ---
- ER Visit Summary Date of Service: 07/04/20 Chief Complaint: Left knee pain History of Present Illness: The patient is a 60 M who has left knee pain. He has a history of chronic bilateral knee pain. States his left knee gave out and he fell. He states he barely hit it on the floor today. He is having an increase of his chronic pain. He takes Motrin for it at home which helps. He states his left knee needs replaced but he has to lose over 100 pounds before this happens. He is from the [facility] but is here visiting family. He has been seen here multiple times this year for similar symptoms. Physical Examination: Vital signs are reviewed. Bilateral knee exam reveals no outward signs of trauma. No ecchymosis. He has full range of motion. When he is distracted he has no pain on palpation but when I ask him if he has pain he screams and states he is having pain in the bilateral anterior knee areas. His sensation is intact. His are equal in the feet bilaterally Test Results: None performed Emergency Department Course and Treatment: I believe that this is a chronic knee issue. I do not see any outward signs of trauma that would necessitate imaging. I will give him 1 dose of naproxen here. He has had a history of bargaining for more pain medications here. He will be discharged to follow-up with his doctors and to take his Motrin at home Treatment Plan: [] Disposition: Discharge Impression: Chronic bilateral knee pain This note was generated with [employer] dictation software. It may contain incorrect words, spelling, and punctuation that were not noted in review of the chart prior to signing ED Disposition - Plan for ED Patient: Disposition: Home or Assisted Living Instructions: ED Mechanical Fall Referrals: Care Physician,No Primary [Primary Care Provider] -
[2020-07-04] MEDS: Naproxen 500 MG Tablet PO (18:33)
--- NOTE | 2020-07-04 19:12 | ED.RN ---
pt repeatedly asked for stronger pain medication- MD did not order and pt and aware.
== END 2020-07-04 19:13 | disposition home or self-care (01) ==
LOC: ED 18:44
PROVIDERS: Emergency Provider Emergency Medicine
DX: M25.561 Pain in right knee (principal); M25.562 Pain in left knee; G89.29 Other chronic pain
CPT/HCPCS: 99283

== ENCOUNTER 2020-10-30 17:44 | Emergency (ER) | payer MEDICARE, MEDICAID, SELFPAY ==
[2020-10-30 17:45] VITALS: PULSE 96; RESP 16; TEMP 35.7; O2SAT 96; BMI 57.4
[2020-10-30 17:48] VITALS: BP 166/77; PULSE 98; RESP 16; O2SAT 95
--- NOTE | 2020-10-30 18:30 | ED.VISSUMM ---
- ER Visit Summary Date of Service: 10/30/20 Chief Complaint: Fall History of Present Illness: The patient is a 60 M presenting after fall downstairs. Patient states that he lost his balance and his knee started to give out and he fell down approximately 4 steps. He did not hit his head or lose consciousness. His tried to catch him when he started to fall. He states this has happened multiple times before. He and his have been seen multiple times with this exact story in the past. He has been told in the past he would not receive narcotic medications from the emergency department. Physical Examination: Vitals are stable. Patient is afebrile. Alert no acute distress. HEENT exam is unremarkable. Neck is nontender Lungs are clear and equal bilaterally. Heart is regular rate and rhythm. Abdomen is soft nontender nondistended. Extremities mild diffuse right tender knee tenderness with active full range of motion, neurovascularly intact distally Skin is warm and dry. No focal neurologic deficit. Remainder of exam is unremarkable. Emergency Department Course and Treatment: Patient was given Valium x1. After receiving Valium patient is now declining x-rays. He states his ride is here and he needs to leave the ED immediately. Advised to follow-up with primary care physician. Disposition: Discharge home Impression: Right knee pain, lumbar strain, status post fall This note was generated with [employer] dictation software. It may contain incorrect words, spelling, and punctuation that were not noted in review of the chart prior to signing ED Disposition - Plan for ED Patient: Referrals: Care Physician,No Primary [Primary Care Provider] -
[2020-10-30] MEDS: diazePAM 5 MG Tablet PO (18:36)
--- NOTE | 2020-10-30 18:39 | ED.DEP ---
ED Disposition - Plan for ED Patient: Instructions: ED Back Sprain/Strain Referrals: Care Physician,No Primary [Primary Care Provider] -
[2020-10-30 18:48] VITALS: RESP 20
--- NOTE | 2020-10-30 18:49 | ED.RN ---
pt's ride was unable to wait any longer and so the pt had to leave er. discharged via wheelchair.
== END 2020-10-30 18:45 | disposition home or self-care (01) ==
LOC: ED 18:47
PROVIDERS: Emergency Provider Emergency Medicine
DX: S39.012A Strain of muscle, fascia and tendon of lower back, initial encounter (principal); M25.561 Pain in right knee; W10.9XXA Fall (on) (from) unspecified stairs and steps, initial encounter; Y93.9 Activity, unspecified; Y92.9 Unspecified place or not applicable; Y99.9 Unspecified external cause status; Z79.82 Long term (current) use of aspirin; Z79.4 Long term (current) use of insulin; Z79.899 Other long term (current) drug therapy
CPT/HCPCS: 99283